=== PATIENT | male | born 1995 | race African-American/Black ===

== ENCOUNTER 2023-05-11 07:31 | Outpatient (AMB) | payer OTHER, SELFPAY ==
--- NOTE | 2023-05-11 07:46 | MHC.PC.OV ---
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 Intake Note: Pt is here today as a new patient for a PE Allergies No Known Allergies Allergy (Verified 05/11/23 07:49) Medication List - Last Reconciled 05/11/23 by Holley Bowman MD dextroamphetamine-amphetamine 10 mg (Adderall) 10 mg PO DAILY dextroamphetamine-amphetamine 25 mg ER (Adderall XR) 25 mg PO DAILY escitalopram oxalate (Lexapro) 20 mg PO DAILY Tobacco use date assessed: 05/11/23 Dental Screening Dental Screen Date: 05/11/23 Did you have a dental visit in the last 12 months?: No Was dental information given to patient?: No 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 Patient follows up with Psychiatry for ADHD depression and recently diagnosed with autism. [facility], [facility] Family History Mother Mental health disorder Maternal Aunt Mental health disorder Social History (Updated 05/11/23 @ 09:37 by Holley Bowman MD) Household Members Other:: lives with mother and stepfather, unemployed, graduate of [employer] Housing: House Patient Tobacco Use Status: Never used Tobacco e-Cigarette/Vaping Use: Never Used service: No Current occupational status: unemployed Cognitive needs: No Hearing needs: No Vision needs: No Questionnaire PHQ-9 Over the last 2 weeks, how often have you been bothered by any of the following problems? 1. Little interest or pleasure in doing things: more than half the days 2. Feeling down, depressed, or hopeless: more than half the days 3. Trouble falling or staying asleep, or sleeping too much: more than half the days 4. Feeling tired or having little energy: nearly every day 5. Poor appetite or overeating: several days 6. Feeling bad about yourself - or that you are a failure or have let yourself or your family down: nearly every day 7. Trouble concentrating on things, such as reading the newspaper or watching television: nearly every day 8. Moving or speaking so slowly that other people could have noticed. Or the opposite - being so fidgety or restless that you have been moving around a lot more than usual: nearly every day 9. Thoughts that you would be better off or of hurting yourself in some way: nearly every day Total score: 22 Source: Developed by Drs. Hugh Quigley, Mamta Reilly, Hung Mensah and colleagues, with an educational rafael from [employer]. Thrive Questionnaire Date Thrive assessed: 05/11/23 I am a: Patient What is your living situation today?: I have a steady place to live Within the past 12 months, did the food you bought not last and you didn't have the money to get more?: Never true Within the past 12 months, did you worry whether your food would run out before you got money to buy more?: Sometimes True Do you have trouble paying for medicines?: No Do you have trouble getting transportation to medical appointments?: No Do you have trouble paying your heating and electricity bill?: No Do you have trouble taking care of your child, family member or friend?: No Do you have trouble with day-to-day activities such as bathing, preparing meals, shopping, managing finances, etc.?: No Are you currently unemployed and looking for a job?: Yes Are you interested in more education?: Yes AUDIT C Alcohol Use Questionnaire (AUDIT-C) 1. How often do you have a drink containing alcohol?: Monthly or less 2. How many drinks containing alcohol do you have on a typical day when you are drinking?: 1 or 2 3. How often do you have six or more drinks on one occasion?: Never Total Score: 1 SUKHWINDER-7 AMB Questionnaire SUKHWINDER-7 Date SUKHWINDER - 7 assessed: 05/11/23 Feeling nervous, anxious, or on edge: 2 = More than half the days Not being able to stop or control worryin = Nearly every day Worrying too much about different things: 3 = Nearly every day Trouble relaxin = Nearly every day Being so restless that it is hard to sit still: 3 = Nearly every day Becoming easily annoyed or irritable: 1 = Several days Feeling afraid as if something awful might happen: 2 = More than half the days Total SUKHWINDER-7 score (0-4 normal; 5-9 mild; 10-14 moderate; 15-21 severe): 17 Source: Developed by Drs. Hugh Quigley, Mamta Reilly, Hung Mensah and colleagues, with an educational rafael from [employer]. Review of Systems Const All systems reviewed & are unremarkable except as noted in HPI and below Reports no additional complaints Eyes Reports no additional complaints ENT Reports no additional complaints Card Reports no additional complaints Resp Reports no additional complaints GI Reports no additional complaints Reports no additional complaints Physical exam (Primary Care) Vital Signs: Last Vital Signs Pulse 99 05/11/23 07:49 BP 128/80 05/11/23 07:49 Pulse Ox 99 05/11/23 07:49 Oxygen Delivery Method Room Air 05/11/23 07:49 BMI result Body Mass Index 23.9 Tobacco/Smoking Status: Tobacco use Status Tobacco use date assessed 05/11/23 05/11/23 07:53 Patient Tobacco Use Status Never used Tobacco 05/11/23 07:53 e-Cigarette/Vaping Use Never Used 05/11/23 07:53 PHQ-9: PHQ-9 Score PHQ-9: Total score 22 05/11/23 07:56 Thrive Assessment: Date of Thrive Assessment Date Thrive assessed 05/11/23 05/11/23 07:56 Const General: no acute distress HENMT Head: Yes normal to inspection Ears: hearing grossly normal bilaterally General nose exam: Normal external nose present Face and sinus: Yes normal facial exam Mouth: Normal oral and palatal mucosa present Throat: Yes posterior oropharynx normal Eyes General: appearance normal, both eyes and all related structures Neck Neck: Yes no lymphadenopathy and Yes supple Resp Effort & Inspection: normal respiratory effort Auscultation: clear to auscultation bilaterally Cardio Rhythm: regular rhythm Heart sounds: S1 normal heart sound present and S2 normal heart sound present GI Inspection: Yes normal to inspection Palpation (GI): Soft to palpation Percussion: Yes normal to percussion Auscultation: normal bowel sounds Assessment and Plan Assessment & Plan (1) Annual physical exam: Code(s): Z00.00 - Encounter for general adult medical examination without abnormal findings Plan: WELL-BALANCED DIET REGULAR PHYSICAL ACTIVITY DISCUSSED WITH THE PATIENT. HE WILL RETURN FOR FASTING BLOOD WORK (2) Depression: Code(s): F32.A - Depression, unspecified Plan: Follow-up with Psychiatry (3) ADHD: Code(s): F90.9 - Attention-deficit hyperactivity disorder, unspecified type Plan: Follow-up with Psychiatry (4) Autistic disorder, active: Code(s): F84.0 - Autistic disorder Orders: Orders Comprehensive [place]. Panel Fast Today Z00.00 - Encounter for general adult medical examination without abnormal findings Lipid Panel Today Z00.00 - Encounter for general adult medical examination without abnormal findings Complete Blood Count Auto Diff Today Z00.00 - Encounter for general adult medical examination without abnormal findings Coding Level of Care Code New Pt Prev Care 18-39yr([id number] Diagnoses Annual physical exam Z00.00 Depression F32.A ADHD F90.9 Autistic disorder, active F84.0
[2023-05-11 07:49] VITALS: BP 128/80; PULSE 99; O2SAT 99; BMI 23.9
== END 2023-05-11 09:43 | disposition home or self-care (01) ==
PROVIDERS: PCP Internal Medicine; Visit Provider Internal Medicine
DX: Z00.00 Encounter for general adult medical examination without abnormal findings (principal); F32.A Depression, unspecified; F90.9 Attention-deficit hyperactivity disorder, unspecified type; F84.0 Autistic disorder
CPT/HCPCS: 99385

== ENCOUNTER 2024-11-01 04:35 | Emergency (ER) | payer OTHER, SELFPAY ==
[2024-11-01 04:39] VITALS: BP 136/87; PULSE 100; O2SAT 99
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
[2024-11-01 05:05] VITALS: BP 110/59; PULSE 118; RESP 18; TEMP 37.2; O2SAT 96; BMI 24.8
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
[2024-11-01 05:53] LABS: MANUAL DIFF FLAG NO
[2024-11-01 05:54] LABS: Basophils Absolute Auto 0.1 X10*3/uL (0.0-0.2); Basophils Percent Auto 0.8 % (0-2); Eosinophils Absolute Auto 0.1 X10*3/uL (0.0-0.4); Eosinophils Percent Auto 0.5 % (0-4); Hematocrit 41.3 % (42.0-52.0); Hemoglobin 14.5 g/dl (14.0-18.0); Imm Gran Abs Auto 0.06 X10*3/uL (0.00-0.03); Imm Gran Pct Auto 0.5 % (0.0-0.4); Lymphocytes Absolute Auto 1.9 X10*3/uL (1.2-4.9); Lymphocytes Percent Auto 16.1 % (20-40); Mean Corpuscular HGB Conc 35.1 g/dl (31.0-36.0); Mean Corpuscular Hemoglobin 29.6 pg (27.0-33.0); Mean Corpuscular Volume 84.3 fL (80.0-98.0); Monocytes Absolute Auto 0.7 X10*3/uL (0.1-1.2); Monocytes Percent Auto 6.1 % (2-11); Neutrophils Absolute Auto 9.1 x10*3/uL (2.0-8.3); Platelet Count 336 X10*3/uL (160-400); Red Cell Distribution Width 12.7 % (11.0-16.0)
[2024-11-01 06:06] LABS: Amphetamine Screen Urine Not Detected (Not Detect); Barbiturates, Urine Not Detected (Not Detect); Benzodiazepines Screen Urine Not Detected (Not Detect); Buprenorphine Scr Not Detected (Not Detect); Cannabinoid Screen Urine Not Detected (Not Detect); Cocaine Screen Urine Not Detected (Not Detect); Fentanyl, urine Not Detected (Not Detect); Methadone Screen, Urine Not Detected (Not Detect); Opiate Screen Urine Not Detected (Not Detect); Oxycodone Screen Urine Not Detected (Not Detect); Phencyclidine Screen Urine Not Detected (Not Detect)
[2024-11-01 06:09] LABS: Alanine Aminotransferase 75 U/L (0-40); Albumin Level 4.6 g/dL (3.5-5.0); Alkaline Phosphatase 111 U/L (39-117); Anion Gap 17 (12-20); Aspartate Amino Transferase 56 U/L (5-37); Bilirubin Direct 0.3 mg/dL (0.0-0.5); Bilirubin Total 0.7 mg/dL (0.0-1.0); Blood Urea Nitrogen 10 mg/dL (9-16); Calcium 9.4 mg/dL (8.4-10.2); Carbon Dioxide 22 mmol/L (22-29); Chloride 110 mmol/L (96-108); Estimated Glomerular Filt Rate > 60; Ethanol 119 mg/dL; Glucose Random 88 mg/dL (60-115); Potassium 4.1 mmol/L (3.3-5.1); Sodium 145 mmol/L (135-145); Total Protein 6.7 g/dL (6.5-8.0)
--- OUTSIDE RECORDS SUMMARY | 2024-11-01 08:06 | XMS_ITS | Patient Health Record ---
Author Organization [facility] Address [address] [place], [place] [id number] Care Team Providers Care Performance Management Consultant Name Role Phone Kevin Garrido Primary Care Provider Hao Johnson Unavailable [phone] Reason For Referral No Information Medications Medication SIG (Take, Route, Frequency, Duration) Notes Start Date End Date Status FLUoxetine HCl 40 MG Capsule 1 tablet in the morning Orally Once a day; Duration: 30 days 10/01/2015 Active Wellbutrin XL 150 MG Tablet Extended Release 24 Hour 1 tablet in the morning Orally Once a day; Duration: 30 days 07/02/2015 Active Social History Social History Drugs/Alcohol: Social Info Question Answer Notes Drugs Have you used drugs other than those for medical reasons in the past 12 months? No Additional Details Category Social Info Options Details Miscellaneous: Others at home: parents, s iblings Travel outside of the [place]: none in last six months Living with: family Natural support system: relies o n family Section Notes: lives with mom and 2 brother s lives with mom and 2 brother s lives with mom and 2 brother s lives with mom and 2 brother s lives with mom and 2 brother s lives with mom and 2 brother s Problems Problem Type SNOMED Code ICD Code Onset Dates Problem Status W/U Status Risk Notes Problem Social phobia (83193066) Social phobia (300.23) Active confirmed Problem Dysthymia (25157034) Dysthymic disorder (300.4) Active confirmed Problem Attention deficit hyperactivity disorder, 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) Attention deficit disorder of childhood without mention of hyperactivity (314.00) Active confirmed Problem Attention deficit hyperactivity disorder, predominantly inattentive type (57944021) Attention or concentration deficit (799.51) Active confirmed Problem Dysthymia (41046913) Dysthymic disorder (F34.1) Active confirmed Problem Generalized social phobia (40724473) Social phobia, generalized (F40.11) Active confirmed Problem Attention deficit hyperactivity disorder (811398118) Attention-deficit hyperactivity disorder, unspecified type (F90.9) Active confirmed Plan Of Treatment Pending Test Test Name Order Date SPIROMETRY 01/14/2016 SPIROMETRY 10/01/2015 Insurance Providers Payer Name Payer Address Payer Phone Subscriber Number Group Number Insured Name Patient Relationship to Insured Coverage Start Date Coverage End Date [facility] [place] [address] [place] [id number] [id number] Enrico Nguyen Self - patient is the insured Medical (General) History Medical History History ICD Code DISTRESS - -2 - i min- NICU [ONE DAY] 8Lbs - 9 oz. Developmental milestones were acuired at normal intrevals.--no regressions was tested in school had an IEP for math .
--- NOTE | 2024-11-01 10:13 | PC.NURSE ---
Addendum entered by Ev Isaacs 11/01/24 10:17: Re Quetiapine - pharmacy instructions say take 1/2 - 1 tab at night (25mg-50mg). Pt states that his prescriber instructed him increase to 1 full tab consistantly Original Note: med rec completed with information from pt and pharmacy claims. Pt states that he no longer takes Adderall. He states he takes Vyvanse, recently filled at the pharmacy. He takes Escitalopram 20mg daily and Quetiapine 50mg at bedtime. Reports compliance with medication but states he sometimes does not take the Vyvanse if he feels he doesn't need it.
[2024-11-01] MEDS: Escitalopram Oxalate 20 MG TABLET PO (10:46)
[2024-11-01 16:38] VITALS: BP 110/70; PULSE 82; RESP 16; TEMP 36.8; O2SAT 99
[2024-11-01 16:39] VITALS: BP 110/70; PULSE 82; RESP 16; TEMP 36.8; O2SAT 99
--- NOTE | 2024-11-03 16:15 | MHC.CARE ---
Rad Team completed an [facility] and PHP referral in for this pt. Will follow up tomorrow
== END 2024-11-01 17:39 | disposition home or self-care (01) ==
PROVIDERS: Emergency Provider Emergency Medicine
DX: F33.1 Major depressive disorder, recurrent, moderate (principal); R45.851 Suicidal ideations; Z79.899 Other long term (current) drug therapy; Z51.81 Encounter for therapeutic drug level monitoring
CPT/HCPCS: 36415; 80048; 80076; 80307; 85025; 99284; 99285; S9485